=== PATIENT | female | born 1995 | race Native Hawaiian/Other Pacific Islander ===

== ENCOUNTER 2017-03-09 16:29 | Outpatient (CLI) | payer OTHER ==
[~2017-03-09 16:29] MED LIST: BROMFED DM OR; FLONASE0.05 %; LEVO0.0218 PO; PRENA OR; QUATREFO OR; ZITHROMAX500 MG OR; [UNRECOGNIZED DRUG - OTHER] OR
[2017-03-09 16:52] LABS: PLATELET COUNT 185 K/uL (152-353)
[2017-03-09 17:35] LABS: POTASSIUM 3.8 mmol/L (3.6-5.2); SODIUM 138 mmol/L (136-145)
== END 2017-03-09 19:51 | disposition home or self-care (01) ==
LOC: LABW 16:29
PROVIDERS: Family Medicine
DX: N91.1 Secondary amenorrhea (principal); R10.2 Pelvic and perineal pain; Z86.39 Personal history of other endocrine, nutritional and metabolic disease
CPT/HCPCS: 36415; 80053; 81000; 84439; 84443; 84702; 85027

== ENCOUNTER 2021-11-30 12:25 | Emergency (ER) | payer OTHER ==
[~2021-11-30] VITALS: Ht 157.5 cm; Wt 77.1 kg
[2021-11-30 12:32] VITALS: BP 109/75; TEMP 97
== END 2021-11-30 15:15 | disposition home or self-care (01) ==
LOC: ED 12:25
PROC: 2W3QX1Z Immobilization of Right Lower Leg using Splint (ICD-10-PCS; principal; 2021-11-30)
DX: S93.491A Sprain of other ligament of right ankle, initial encounter (principal); X50.1XXA Overexertion from prolonged static or awkward postures, initial encounter; Y92.098 Other place in other non-institutional residence as the place of occurrence of the external cause
CPT/HCPCS: 99283

== ENCOUNTER 2022-01-09 05:51 | Emergency (ER) | payer OTHER ==
[~2022-01-09] VITALS: Ht 160 cm; Wt 72.6 kg
[2022-01-09 05:55] VITALS: TEMP 99.1
[2022-01-09 07:10] VITALS: BP 112/72
== END 2022-01-09 07:18 | disposition home or self-care (01) ==
LOC: ED 05:51
DX: J02.9 Acute pharyngitis, unspecified (principal); K02.9 Dental caries, unspecified; K05.30 Chronic periodontitis, unspecified
CPT/HCPCS: 87651; 99282; 99283

== ENCOUNTER 2022-02-21 14:51 | Outpatient (CLI) | payer OTHER | END 2022-02-21 19:06 | disposition home or self-care (01) | LOC: LABW 14:51 | PROVIDERS: ATTEND Obstetrics & Gynecology Obstetrics | DX: J30.1 Allergic rhinitis due to pollen (principal); L30.4 Erythema intertrigo; O20.0 Threatened abortion | CPT/HCPCS: 36415; 84702 ==

== ENCOUNTER 2022-03-05 21:51 | Emergency (ER) | payer OTHER ==
[~2022-03-05] VITALS: Ht 149.9 cm; Wt 72.6 kg
[2022-03-05 23:15] VITALS: BP 110/77; TEMP 98.5
== END 2022-03-05 23:20 | disposition home or self-care (01) ==
LOC: ED 21:51
DX: N39.0 Urinary tract infection, site not specified (principal); Z32.02 Encounter for pregnancy test, result negative
CPT/HCPCS: 81000; 81025; 87086; 87088; 96372; 99283; J0696

== ENCOUNTER 2022-03-31 21:46 | Emergency (ER) | payer OTHER ==
[~2022-03-31] VITALS: Ht 149.9 cm; Wt 72.6 kg
[2022-03-31 23:16] LABS: PLATELET COUNT 167 K/uL (152-353)
[2022-03-31 23:29] LABS: POTASSIUM 3.7 mmol/L (3.6-5.2); SODIUM 142 mmol/L (136-145)
[2022-03-31 23:55] VITALS: BP 114/66
== END 2022-03-31 23:55 | disposition home or self-care (01) ==
LOC: ED 21:46
PROVIDERS: Emergency Medicine
DX: R07.89 Other chest pain (principal)
CPT/HCPCS: 36415; 80053; 80307; 81025; 84484; 85027; 85379; 85610; 93005; 99283

== ENCOUNTER 2022-07-06 14:05 | Emergency (ER) | payer OTHER ==
[~2022-07-06] VITALS: Ht 149.9 cm; Wt 70.3 kg
[2022-07-06 14:08] VITALS: TEMP 98.1
[2022-07-06 15:22] VITALS: BP 126/72
== END 2022-07-06 15:22 | disposition home or self-care (01) ==
LOC: ED 14:05
DX: J02.9 Acute pharyngitis, unspecified (principal); J40 Bronchitis, not specified as acute or chronic; F17.210 Nicotine dependence, cigarettes, uncomplicated
CPT/HCPCS: 87651; 99282

== ENCOUNTER 2022-12-10 19:56 | Emergency (ER) | payer OTHER ==
[~2022-12-10] VITALS: Ht 149.9 cm; Wt 68.9 kg
[2022-12-10 20:00] VITALS: TEMP 98.8
[2022-12-10 20:55] VITALS: BP 120/73
== END 2022-12-10 20:55 | disposition home or self-care (01) ==
LOC: ED 19:56
DX: N39.0 Urinary tract infection, site not specified (principal); J02.0 Streptococcal pharyngitis
CPT/HCPCS: 81000; 81025; 87086; 87088; 96372; 99282; J0696

== ENCOUNTER 2022-12-29 00:43 | Emergency (ER) | payer OTHER ==
[~2022-12-29] VITALS: Ht 149.9 cm; Wt 52.2 kg
[2022-12-29 01:10] VITALS: BP 110/87; TEMP 98.8
== END 2022-12-29 02:45 | disposition home or self-care (01) ==
LOC: ED 00:43
DX: J02.9 Acute pharyngitis, unspecified (principal); F17.210 Nicotine dependence, cigarettes, uncomplicated; Z20.822 Contact with and (suspected) exposure to COVID-19
CPT/HCPCS: 81002; 81025; 87502; 87635; 87651; 99283; U0001

== ENCOUNTER 2023-03-31 12:07 | Emergency (ER) | payer OTHER ==
[~2023-03-31] VITALS: Ht 149.9 cm; Wt 72.6 kg
[2023-03-31 12:17] VITALS: BP 114/59; TEMP 101.3
== END 2023-03-31 13:45 | disposition home or self-care (01) ==
LOC: ED 12:07
DX: J10.1 Influenza due to other identified influenza virus with other respiratory manifestations (principal); H60.90 Unspecified otitis externa, unspecified ear
CPT/HCPCS: 87502; 87635; 87651; 99283; J1100; U0003